=== PATIENT | male | born 1960 | race Hispanic/Latino ===

== ENCOUNTER 2018-08-10 07:27 | Day surgery (SDC) | payer MEDICAID ==
[2018-08-10] VITALS (18 sets, daily range): BP systolic 71–163; BP diastolic 62–80
[~2018-08-10] VITALS: Ht 175.3 cm; Wt 64.4 kg
[~2018-08-10 07:27] MED LIST: SODIUM CHLORIDE 0.9% 1000ML 1,000 ML IV ONE
--- NOTE | 2018-08-10 10:45 | NUR ---
nursing report regarding chest pain, stroke and hypertension to anesthesia darcy mejia crna Addendum: 08/10/18 at 1048 by MARLON GERMAN RN Amended: Links added.
[2018-08-10] MEDS ORDERED: IOHEXOL-350 50ML VIAL IV ONE (10:48)
[2018-08-10] MEDS ORDERED: pain med (10:53)
[2018-08-10] MEDS ORDERED: lantus (10:53)
[2018-08-10] MEDS ORDERED: [UNRECOGNIZED DRUG - REMARK] (10:53)
[2018-08-10] MEDS ORDERED: [UNRECOGNIZED DRUG - OTHER] (10:53)
[2018-08-10] MEDS ORDERED: PROPOFOL 1000 MG/100 ML 100 ML IV ONE (13:31)
[2018-08-10] MEDS ORDERED: SUCCINYLCHOLINE CHLORIDE 20 MG/ML 10 ML VIAL ONE (13:32)
[2018-08-10] MEDS ORDERED: GLYCOPYRROLATE 0.2 MG/ML 5 ML VIAL ONE (13:57)
[2018-08-10] MEDS ORDERED: INDOMETHACIN 50 MG SUPP.RECT RC SCH (14:30)
[2018-08-10] MEDS ORDERED: IPRATROPIUM/ALBUTEROL SULFATE 3 ML SOLUTION IH ONE (15:12)
--- NOTE | 2018-08-10 15:50 | NUR ---
RECEIVE PT RECEIVED FROM PACU VIA STRETCHER AWAKE ALERT ORIENTED X3. PT DENIES PAIN, ABDOMINAL PAIN, AFEBRILE, NO N/V, NO SIGNS OF BLEEDING. ABDOMEN SOFT. WILL CALL FOR TO COME IN TO ROOM, CALL [facility] WITHIN REACH. PER PT, MEDICAID TRANSPORTATION WILL TAKE THEM HOME. KEPT PT NPO. INSTRUCTED MAY START CLEAR LIQUIDS AT ABOUT 8;40 PM, MAY ADVANCE TOLERATED.. VERBALIZED UNDERSTANDING.
--- NOTE | 2018-08-10 16:45 | NUR ---
DISCHARGE MEDICAID TRANSPORTATION HERE, PT DISCHARGED VIA WHEELCHAIR WITH . PT STABLE. NO COMPLAINTS MADE. DENIES PAIN, NO COMPLAINTS OF ABDOMINAL PAIN, NO FEVERS, CHILLS, NAUSEA, VOMITING, SIGNS OF BLEEDING OR ANY OTHER SYMPTOMS OF ACUTE PANCREATITIS. ABDOMEN SOFT. KEPT NPO. DISCHARGE INSTRUCTIONS GIVEN TO AND PT, VERBALIZED UNDERSTANDING. Addendum: 08/10/18 at 1732 by JOSUE AGUILLON RN RN ADDENDUM: ALSO INSTRUCTED TO CALL DR. GUEVARA'S OFFICE AND ASK WHEN TO HAVE LABS DRAWN DR. GUEVARA WANTS TO SEE PT IN A WEEK WITH LFT'S. I CALLED OFFICE AT ABOUT 1615, NO ANSWER. Addendum: 08/10/18 at 1850 by JOSUE AGUILLON RN RN ALL DISCHARGE PAPERS, DISCHARGE INSTRUCTIONS, HAND OUTS, ERCP REPORT PROVIDED AND EXPLAINED TO PT AND . BOTH VERBALIZED UNDERSTANDING. SIGNED ALL PAPER WORKS.
== END 2018-08-10 16:45 | disposition home or self-care (01) ==
LOC: DAH 07:27
PROVIDERS: ATTEND Internal Medicine
DX: K80.30 Calculus of bile duct with cholangitis, unspecified, without obstruction (principal); E11.9 Type 2 diabetes mellitus without complications; I10 Essential (primary) hypertension; Z98.890 Other specified postprocedural states; Z79.4 Long term (current) use of insulin; Z79.899 Other long term (current) drug therapy
CPT/HCPCS: 43264; 43276; 74328; 82948 ×2; 93005; 94640; C1769; C1773; C2625; J0330; J2704; J7030; Q9967; 43262; 43274; 74330; J3490